=== PATIENT | female | born 1980 | race Caucasian/White ===

== ENCOUNTER 2016-09-01 17:35 | Emergency (ER) | payer MEDICAID ==
[2015-12-17 04:02] VITALS: BMI 31.7
[~2016-09-01 17:35] MED LIST: AMBIEN10 MG PO; BUTALB-APAP-CA1 EACH PO; DEPAKOTE ER500 MG PO; ESTRACE1 MG PO; FERROUS SULFAT325 MG PO; FLAGYL500 MG PO; HYSINGLA ER30 MG PO; LEVAQUIN750 MG PO; LYRICA50 MG PO; SEROQUEL50 MG PO; TRAZODONE HCL300 MG PO; TRAZODONE HCL50 MG; TRAZODONE HCL50 MG PO; VITAFOL-OB CA1 UDTAB; XANAX1 MG PO
== END 2016-09-01 18:50 | disposition left against medical advice (07) ==
LOC: D.ER 17:35
DX: Z02.9 Encounter for administrative examinations, unspecified (principal)

== ENCOUNTER 2016-11-06 16:55 | Inpatient (IN) | payer MEDICAID ==
[~2016-11-06] VITALS: Ht 157.5 cm; Wt 81.6 kg
--- NOTE | ~2016-11-06 | OP ---
PATIENT NAME: CLAU LUCERO MEDICAL RECORD: [id number] :84 LOCATION:[id number] ADMISSION DATE:11/06/16 SURGEON: BRIAN CHACON MD DATE OF OPERATION: 11/07/2016 PREOPERATIVE DIAGNOSES: 1. Foreign bodies penetrating the abdominal cavity. 2. Posttraumatic stress disorder. 3. Anxiety. POSTOPERATIVE DIAGNOSES: 1. Foreign bodies penetrating the abdominal cavity. 2. Posttraumatic stress disorder. 3. Anxiety. PROCEDURES: 1. Removal of foreign bodies from the anterior abdomen times 8. 2. Fluoroscopic interpretation. SURGEON: Brian Chacon MD. REPORT OF PROCEDURE: The patient's abdomen was prepped and draped in sterile fashion. A total of 7 skin incisions were made overlying the patient's abdominal cavity. Using fluoroscopic guidance, we were able to find 8 straight sewing needles, which I penetrated the abdominal cavity. In the left abdomen, there was one in the left upper quadrant and 2 more in the left lower quadrant. In the right abdomen, there were total of 4 needles mainly in the right lower quadrant. There was one final needle in the midline in the epigastrium. Once all of these were removed, fluoro was used to reassess the abdomen and there was no sign of any retained foreign bodies. The wounds were all reapproximated with interrupted 3-0 Vicryl and then closed with ____. COMPLICATIONS: None. CONDITION: Stable. ANESTHESIA: General endotracheal and local. BLOOD LOSS: Minimal. TRANSINT:[id number] Voice Confirmation ID: [id number] DOCUMENT ID: [id number] BRIAN CHACON MD CC: [id number] DICTATION DATE: 11/07/16 1212 VERIFIER: 11/07/16 1741 DIS IN 11/07/16 [facility] [address] [place] [address]
[2016-11-06 19:18] LABS: UDS - AMPHET NEGATIVE QUAL (NEGATIVE); UDS - BARB POSITIVE QUAL (NEGATIVE); UDS - BENZO POSITIVE QUAL (NEGATIVE); UDS - COCAINE NEGATIVE QUAL (NEGATIVE); UDS - METH NEGATIVE QUAL (NEGATIVE); UDS - OPIATE POSITIVE QUAL (NEGATIVE); UDS - PCP NEGATIVE QUAL (NEGATIVE); UDS - THC NEGATIVE QUAL (NEGATIVE)
[2016-11-06 20:05] LABS: BASOPHILS 0.3 % (0-2); EOSINOPHILS 4.1 % (0-7); HEMATOCRIT 31.4 % (36.0-48.0); IMMATURE GRANULOCYTES 0.1 % (0-5); LYMPHOCYTES 39.2 % (15-50); MCH 28.2 pg (26.0-34.0); MCHC 31.8 g/dL (31.0-37.0); MCV 88.5 fL (80.0-100.0); MEAN PLATELET VOLUME 8.5 fL (7.4-10.4); MONOCYTES 8.5 % (2-11); NEUTROPHILS 47.8 % (40-80); PLATELET COUNT 165 10x3/uL (130-400); RBC 3.55 10x6/uL (4.00-5.40); RDW 13.7 % (11.5-14.5); WBC 7.3 10x3/uL (4.8-10.8)
[2016-11-06 20:25] LABS: CALC OSMOLALITY 275 mosm/kg (275-300); CALCIUM 8.6 mg/dL (8.5-10.1); CARBON DIOXIDE 29.1 mmol/L (21.0-32.0); CHLORIDE - SERUM 106 mmol/L (98-107); CREATININE - SERUM 0.8 mg/dL (0.6-1.3); GLUCOSE 95 mg/dL (74-106); POTASSIUM - SERUM 4.5 mmol/L (3.5-5.1); SODIUM 140 mmol/L (136-145); UREA NITROGEN 5 mg/dL (7-18); VALPROIC ACID (DEPAKOTE) 16.3 ug/mL (50.0-100.0); eGFR NON AFRICAN AMERICAN 87 mL/min (90-120)
[2016-11-06 20:52] LABS: APTT 23.4 SECONDS (22.8-39.4); INR 0.97 (0.85-1.17); PROTIME 12.7 SECONDS (11.6-15.0)
[2016-11-07] VITALS: BP 125/81
--- NOTE | 2016-11-07 | NUR ---
PATIENT RECEIVED TO ROOM FROM ER VIA STRETCHER WITH HOSPITAL STAFF. AAOX4. RR EVEN AND UNLABORED. 0 S/S OF DISTRESS. STATES PAIN IS A 10/10. IV TO RIGHT CHEST PATENT WITH NO REDNESS OR SWELLING. INITIATED FLUIDS PER ORDER. MORPHINE GIVEN FOR PAIN. INITIATED TELEMETRY PER ORDER. ORIENTED PATIENT TO ROOM AND CALL LIGHT.
[2016-11-07 04:00] VITALS: BP 139/88
--- NOTE | 2016-11-07 04:00 | NUR ---
MORPHINE GIVEN FOR PAIN AND ZOFRAN GIVEN FOR NAUSEA.
[2016-11-07 04:14] VITALS: BP 125/89; BMI 33.0
[2016-11-07 08:18] VITALS: BP 116/72
--- NOTE | 2016-11-07 08:24 | NUR ---
PRN MORPHINE ADMINISTERED AT THIS TIME FOR PAIN 9/10 ABDOMINALLY. ASSESSMENT PERFORMED PER FLOWSHEET. WILL CONTINUE WITH PLAN OF CARE.
--- NOTE | 2016-11-07 10:12 | NUR ---
PRN DILAUDID AND ZOFRAN ADMINISTERED BY CODY DANG AT THIS TIME. WILL CONTINUE WITH PLAN OF CARE.
--- NOTE | 2016-11-07 10:12 | NUR ---
DILAUDID 1 MG AND ZOFRAN 8 MG SIVP PER C/O PAIN OF 9 IN ABDOMEN AND NAUSEA.
--- NOTE | 2016-11-07 10:35 | NUR ---
TAKEN TO OR AT THIS TIME. WILL MONITOR PT WHEN SHE RETURNS.
--- NOTE | 2016-11-07 11:15 | NUR ---
ANESTHESIA RESTARTS I.V. DIFFICULT I.V.
[2016-11-07] MEDS ORDERED: HYDROCODONE-APA1 TAB PO (12:05)
[2016-11-07] MEDS ORDERED: BACTRIM DS TABL1 TAB PO (12:14)
--- NOTE | 2016-11-07 12:26 | NUR ---
ANESTHESIA AWARE OF THE PTS PAIN COMPLAINTS AND O2 SAT LEVEL. SEDATION LEVEL. ANESTHESIA ORDERED DISHCARGE FORM PACU
[2016-11-07 12:40] VITALS: BP 134/74
--- NOTE | 2016-11-07 13:10 | NUR ---
BACK TO ROOM 2236 FROM PACU AT THIS TIME. AWAKE AND ALERT. VITAL SIGNS STABLE AND DRESSING TO ABDOMEN C/D/I.
[2016-11-07 13:14] VITALS: Ht 157.5 cm; Wt 81.6 kg
--- NOTE | 2016-11-07 13:30 | NUR ---
VITAL SIGNS STABLE. PT HAS EATEN AND DRANK AND TOLERATED WITHOUT NAUSEA OR VOMITING. VOIDED WITHOUT DIFFICULTY. WILL D/C HOME AT THIS TIME. IV TO RIGHT CHEST D/C BY PT WITH CATH TIP INTACT.
== END 2016-11-07 13:30 | disposition home or self-care (01) | DRG 358 ==
LOC: D.ER 16:55 → D.MS 20:59 → D.ER 20:59 → D.M2 20:59 → D.MS 21:07
PROVIDERS: Nurse Practitioner Acute Care; ADMIT Surgery
PROC: 0WC Anatomical Regions, General, Extirpation (ICD-10-PCS; principal; 2016-11-07 10:00)
DX: S31.644A Puncture wound with foreign body of abdominal wall, left lower quadrant with penetration into peritoneal cavity, initial encounter (principal); S31.64 Puncture wound with foreign body of abdominal wall with penetration into peritoneal cavity; S31.641A Puncture wound with foreign body of abdominal wall, left upper quadrant with penetration into peritoneal cavity, initial encounter; W26.8XXA Contact with other sharp object(s), not elsewhere classified, initial encounter; F43.10 Post-traumatic stress disorder, unspecified; F41.9 Anxiety disorder, unspecified; F31.9 Bipolar disorder, unspecified; I48.91 Unspecified atrial fibrillation

== ENCOUNTER 2016-11-13 13:23 | Emergency (ER) | payer MEDICAID ==
[2016-11-07 13:14] VITALS: BMI 32.9
[~2016-11-13 13:23] MED LIST changes: +BACTRIM DS TABL1 TAB PO; +HYDROCODONE-APA1 TAB PO
[2016-11-13 14:53] LABS: BASOPHILS 0.5 % (0-2); EOSINOPHILS 9.2 % (0-7); HEMATOCRIT 33.8 % (36.0-48.0); HEMOGLOBIN 10.4 g/dL (12-16); IMMATURE GRANULOCYTES 0.3 % (0-5); LYMPHOCYTES 44.7 % (15-50); MCH 27.5 pg (26.0-34.0); MCHC 30.8 g/dL (31.0-37.0); MCV 89.4 fL (80.0-100.0); MEAN PLATELET VOLUME 8.2 fL (7.4-10.4); MONOCYTES 10.1 % (2-11); NEUTROPHILS 35.2 % (40-80); RBC 3.78 10x6/uL (4.00-5.40); RDW 13.9 % (11.5-14.5)
[2016-11-13 14:56] LABS: PLATELET COUNT 268 10x3/uL (130-400)
[2016-11-13 15:09] LABS: ALBUMIN 2.7 g/dL (3.4-5.0); ALKALINE PHOSPHATASE 143 U/L (46-116); ALT (SGPT) 20 U/L (10-68); AMYLASE - SERUM 28 U/L (25-115); BILIRUBIN - TOTAL 0.19 mg/dL (0.2-1.3); CALC OSMOLALITY 275 mosm/kg (275-300); CALCIUM 8.1 mg/dL (8.5-10.1); CARBON DIOXIDE 25.7 mmol/L (21.0-32.0); CHLORIDE - SERUM 105 mmol/L (98-107); CREATININE - SERUM 0.9 mg/dL (0.6-1.3); GLUCOSE 80 mg/dL (74-106); LIPASE 65 U/L (73-393); POTASSIUM - SERUM 4.1 mmol/L (3.5-5.1); PROTEIN - SERUM 6.3 g/dL (6.4-8.2); SODIUM 140 mmol/L (136-145); UREA NITROGEN 7 mg/dL (7-18); eGFR NON AFRICAN AMERICAN 76 mL/min (90-120)
[2016-11-13 16:00] LABS: APPEARANCE CLEAR (CLEAR); BILIRUBIN NEGATIVE (NEGATIVE); COLOR YELLOW (YELLOW); GLUCOSE NEGATIVE (NEGATIVE); KETONE NEGATIVE (NEGATIVE); LEUKOCYTE ESTERASE NEGATIVE (NEGATIVE); NITRITE NEGATIVE (NEGATIVE); PROTEIN NEGATIVE (NEGATIVE); UROBILINOGEN NORMAL (NORMAL)
== END 2016-11-13 16:53 | disposition home or self-care (01) ==
LOC: D.ER 13:23
PROVIDERS: Emergency Medicine; Nurse Practitioner Family
DX: R10.9 Unspecified abdominal pain (principal); R11.2 Nausea with vomiting, unspecified; F41.9 Anxiety disorder, unspecified

== ENCOUNTER 2018-01-16 22:07 | Emergency (ER) | payer MEDICAID ==
[~2018-01-16] VITALS: Ht 157.5 cm; Wt 86.4 kg
[2018-01-16 22:16] VITALS: Ht 157.5 cm; Wt 86.4 kg
[2018-01-16 22:54] LABS: APPEARANCE CLEAR (CLEAR); BILIRUBIN NEGATIVE (NEGATIVE); COLOR YELLOW (YELLOW); GLUCOSE NEGATIVE (NEGATIVE); KETONE NEGATIVE (NEGATIVE); NITRITE NEGATIVE (NEGATIVE); PROTEIN NEGATIVE (NEGATIVE); UROBILINOGEN NORMAL (NORMAL)
[2018-01-16 23:00] LABS: BASOPHILS 0.4 % (0-2); EOSINOPHILS 9.2 % (0-7); HEMOGLOBIN 9.2 g/dL (12-16); IMMATURE GRANULOCYTES 1.1 % (0-5); LYMPHOCYTES 45.1 % (15-50); MCH 29.1 pg (26.0-34.0); MCHC 31.7 g/dL (31.0-37.0); MCV 91.8 fL (80.0-100.0); MEAN PLATELET VOLUME 8.2 fL (7.4-10.4); MONOCYTES 6.1 % (2-11); NEUTROPHILS 38.1 % (40-80); PLATELET COUNT 248 10x3/uL (130-400); RBC 3.16 10x6/uL (4.00-5.40); RDW 17.4 % (11.5-14.5); WBC 11.2 10x3/uL (4.8-10.8)
[2018-01-16 23:01] LABS: UDS - AMPHET NEGATIVE QUAL (NEGATIVE); UDS - BARB NEGATIVE QUAL (NEGATIVE); UDS - BENZO POSITIVE QUAL (NEGATIVE); UDS - COCAINE NEGATIVE QUAL (NEGATIVE); UDS - OPIATE NEGATIVE QUAL (NEGATIVE); UDS - PCP NEGATIVE QUAL (NEGATIVE); UDS - THC NEGATIVE QUAL (NEGATIVE)
[2018-01-16 23:08] LABS: ANION GAP 10.5 mmol/L (8-16); BILIRUBIN - TOTAL 0.13 mg/dL (0.2-1.3); CALCIUM 8.3 mg/dL (8.5-10.1); CARBON DIOXIDE 28.3 mmol/L (21.0-32.0); CREATININE - SERUM 1.1 mg/dL (0.6-1.3); POTASSIUM - SERUM 3.8 mmol/L (3.5-5.1); PROTEIN - SERUM 6.9 g/dL (6.4-8.2)
[2018-01-17] MEDS ORDERED: ZOFRAN ODT4 MG/UDTAB PO (02:26)
[2018-01-17 02:35] VITALS: BP 115/71
== END 2018-01-17 02:37 | disposition home or self-care (01) ==
LOC: D.ER 22:07
PROVIDERS: Family Medicine
DX: R10.9 Unspecified abdominal pain (principal); D64.9 Anemia, unspecified; G40.909 Epilepsy, unspecified, not intractable, without status epilepticus; T42.6X6A Underdosing of other antiepileptic and sedative-hypnotic drugs, initial encounter; Y92.9 Unspecified place or not applicable; Z94.7 Corneal transplant status

== ENCOUNTER 2018-03-11 12:32 | Emergency (ER) | payer MEDICAID ==
[~2018-03-11] VITALS: Ht 157.5 cm; Wt 90.5 kg
[~2018-03-11 12:32] MED LIST changes: +ZOFRAN ODT4 MG/UDTAB PO
[2018-03-11 12:44] VITALS: Ht 157.5 cm; Wt 90.5 kg
[2018-03-11 14:20] LABS: BASOPHILS 0.2 % (0-2); EOSINOPHILS 0 % (0-7); HEMOGLOBIN 9.8 g/dL (12-16); IMMATURE GRANULOCYTES 0.2 % (0-5); MCH 26.8 pg (26.0-34.0); MCHC 31.6 g/dL (31.0-37.0); MCV 84.7 fL (80.0-100.0); MEAN PLATELET VOLUME 8.7 fL (7.4-10.4); MONOCYTES 5.9 % (2-11); NEUTROPHILS 71.7 % (40-80); RBC 3.66 10x6/uL (4.00-5.40); RDW 14.2 % (11.5-14.5); WBC 14.4 10x3/uL (4.8-10.8)
[2018-03-11 14:37] LABS: PLATELET COUNT 319 10x3/uL (130-400)
[2018-03-11 14:48] LABS: APPEARANCE CLEAR (CLEAR); COLOR YELLOW (YELLOW); NITRITE NEGATIVE (NEGATIVE); PROTEIN NEGATIVE (NEGATIVE)
[2018-03-11 14:49] LABS: BILIRUBIN NEGATIVE (NEGATIVE); GLUCOSE 1000 mg/dL (NEGATIVE); KETONE NEGATIVE (NEGATIVE); UROBILINOGEN NORMAL (NORMAL)
[2018-03-11 14:50] LABS: BACTERIA FEW /hpf (NONE SEEN); RED CELLS - URINE 0-5 /hpf (0-5); WHITE CELLS - URINE 0-5 /hpf (0-5)
[2018-03-11 14:51] LABS: ALBUMIN 3.2 g/dL (3.4-5.0); ALKALINE PHOSPHATASE 114 U/L (46-116); ALT (SGPT) 29 U/L (10-68); CALC OSMOLALITY 284 mosm/kg (275-300); CALCIUM 8.9 mg/dL (8.5-10.1); CARBON DIOXIDE 26.4 mmol/L (21.0-32.0); CHLORIDE - SERUM 106 mmol/L (98-107); CREATININE - SERUM 0.9 mg/dL (0.6-1.3); GLUCOSE 72 mg/dL (74-106); POTASSIUM - SERUM 3.7 mmol/L (3.5-5.1); PROTEIN - SERUM 7.9 g/dL (6.4-8.2); SODIUM 144 mmol/L (136-145); eGFR NON AFRICAN AMERICAN 75 mL/min (90-120)
[2018-03-11 14:56] LABS: UREA NITROGEN 11 mg/dL (7-18)
[2018-03-11] MEDS ORDERED: MACROBID100 MG PO (18:01)
[2018-03-11] MEDS ORDERED: ZOFRAN ODT4 MG/UDTAB PO (18:01)
[2018-03-11 22:18] VITALS: BP 102/84
== END 2018-03-11 19:21 | disposition home or self-care (01) ==
LOC: D.ER 12:32
PROVIDERS: Emergency Medicine
DX: N39.0 Urinary tract infection, site not specified (principal); K29.70 Gastritis, unspecified, without bleeding; G40.909 Epilepsy, unspecified, not intractable, without status epilepticus; Z94.7 Corneal transplant status; I48.91 Unspecified atrial fibrillation; Z86.59 Personal history of other mental and behavioral disorders; Z98.84 Bariatric surgery status

== ENCOUNTER 2018-03-31 16:56 | Emergency (ER) | payer MEDICAID ==
[~2018-03-31] VITALS: Ht 157.5 cm; Wt 89.1 kg
[~2018-03-31 16:56] MED LIST changes: +MACROBID100 MG PO
[2018-03-31 17:14] VITALS: Ht 157.5 cm; Wt 89.1 kg
[2018-03-31] MEDS ORDERED: SEROQUEL50 MG PO (17:16)
[2018-03-31] MEDS ORDERED: AMITRIPTYLINE100 MG PO (17:16)
[2018-03-31 18:04] LABS: APPEARANCE CLEAR (CLEAR); BILIRUBIN NEGATIVE (NEGATIVE); COLOR STRAW (YELLOW); GLUCOSE NEGATIVE (NEGATIVE); KETONE NEGATIVE (NEGATIVE); NITRITE NEGATIVE (NEGATIVE); PROTEIN NEGATIVE (NEGATIVE); UROBILINOGEN NORMAL (NORMAL)
[2018-03-31 18:19] LABS: BASOPHILS 0.5 % (0-2); HEMATOCRIT 28.2 % (36.0-48.0); HEMOGLOBIN 8.8 g/dL (12-16); IMMATURE GRANULOCYTES 0.3 % (0-5); LYMPHOCYTES 40.4 % (15-50); MCH 24.9 pg (26.0-34.0); MCHC 31.2 g/dL (31.0-37.0); MCV 79.7 fL (80.0-100.0); MEAN PLATELET VOLUME 7.9 fL (7.4-10.4); MONOCYTES 9.4 % (2-11); NEUTROPHILS 46.4 % (40-80); PLATELET COUNT 323 10x3/uL (130-400); RBC 3.54 10x6/uL (4.00-5.40); RDW 14.8 % (11.5-14.5); WBC 6.6 10x3/uL (4.8-10.8)
[2018-03-31 18:47] LABS: ALBUMIN 2.9 g/dL (3.4-5.0); ALKALINE PHOSPHATASE 124 U/L (46-116); ALT (SGPT) 18 U/L (10-68); BILIRUBIN - TOTAL 0.14 mg/dL (0.2-1.3); CALC OSMOLALITY 279 mosm/kg (275-300); CALCIUM 8.7 mg/dL (8.5-10.1); CARBON DIOXIDE 26.8 mmol/L (21.0-32.0); CHLORIDE - SERUM 106 mmol/L (98-107); CREATININE - SERUM 0.9 mg/dL (0.6-1.3); POTASSIUM - SERUM 3.8 mmol/L (3.5-5.1); PROTEIN - SERUM 7.4 g/dL (6.4-8.2); SODIUM 141 mmol/L (136-145); UREA NITROGEN 6 mg/dL (7-18); eGFR NON AFRICAN AMERICAN 75 mL/min (90-120)
[2018-03-31 18:51] LABS: GLUCOSE 112 mg/dL (74-106)
[2018-03-31] MEDS ORDERED: REGLAN10 MG PO (19:52)
[2018-03-31] MEDS ORDERED: BENTYL10 MG PO (19:52)
[2018-03-31 20:32] VITALS: BP 147/100
== END 2018-03-31 20:32 | disposition home or self-care (01) ==
LOC: D.ER 16:56
PROVIDERS: Emergency Medicine
DX: G89.18 Other acute postprocedural pain (principal); Z98.84 Bariatric surgery status; G40.909 Epilepsy, unspecified, not intractable, without status epilepticus

== ENCOUNTER 2018-06-02 14:09 | Emergency (ER) | payer MEDICAID ==
[~2018-06-02 14:09] MED LIST changes: +AMITRIPTYLINE100 MG PO; +BENTYL10 MG PO; +REGLAN10 MG PO
[2018-06-02 14:12] VITALS: Ht 157.5 cm
[2018-06-02 15:25] LABS: BASOPHILS 0.3 % (0-2); HEMATOCRIT 40.2 % (36.0-48.0); HEMOGLOBIN 12.5 g/dL (12-16); IMMATURE GRANULOCYTES 0.5 % (0-5); LYMPHOCYTES 24.7 % (15-50); MCH 23.5 pg (26.0-34.0); MCHC 31.1 g/dL (31.0-37.0); MCV 75.6 fL (80.0-100.0); MEAN PLATELET VOLUME 8.8 fL (7.4-10.4); MONOCYTES 5.1 % (2-11); NEUTROPHILS 68.4 % (40-80); RBC 5.32 10x6/uL (4.00-5.40); RDW 19.4 % (11.5-14.5)
[2018-06-02 15:26] LABS: HCG URINE NEGATIVE (NEGATIVE)
[2018-06-02 15:32] LABS: PLATELET COUNT 428 10x3/uL (130-400)
[2018-06-02 15:35] LABS: UDS - AMPHET NEGATIVE QUAL (NEGATIVE); UDS - BARB NEGATIVE QUAL (NEGATIVE); UDS - BENZO POSITIVE QUAL (NEGATIVE); UDS - COCAINE NEGATIVE QUAL (NEGATIVE); UDS - OPIATE NEGATIVE QUAL (NEGATIVE); UDS - PCP NEGATIVE QUAL (NEGATIVE); UDS - THC NEGATIVE QUAL (NEGATIVE)
[2018-06-02 15:40] LABS: APPEARANCE CLEAR (CLEAR); COLOR YELLOW (YELLOW)
[2018-06-02 15:41] LABS: BILIRUBIN NEGATIVE (NEGATIVE); EPITHELIAL CELLS OCC /hpf (0-5); GLUCOSE NEGATIVE (NEGATIVE); KETONE NEGATIVE (NEGATIVE); NITRITE NEGATIVE (NEGATIVE); PROTEIN NEGATIVE (NEGATIVE); RED CELLS - URINE NONE SEEN /hpf (0-5); UROBILINOGEN NORMAL (NORMAL); WHITE CELLS - URINE OCC /hpf (0-5)
[2018-06-02 15:46] LABS: ALBUMIN 3.7 g/dL (3.4-5.0); BILIRUBIN - TOTAL 0.2 mg/dL (0.2-1.3); CALCIUM 9.5 mg/dL (8.5-10.1); CARBON DIOXIDE 26.7 mmol/L (21.0-32.0); CREATININE - SERUM 1.2 mg/dL (0.6-1.3); POTASSIUM - SERUM 3.7 mmol/L (3.5-5.1); PROTEIN - SERUM 8.6 g/dL (6.4-8.2)
[2018-06-02 15:51] LABS: VALPROIC ACID (DEPAKOTE) 0.3 ug/mL (50.0-100.0)
[2018-06-02 18:27] VITALS: BP 114/088
== END 2018-06-02 18:29 | disposition home or self-care (01) ==
LOC: D.ER 14:09
PROVIDERS: Family Medicine
DX: G40.909 Epilepsy, unspecified, not intractable, without status epilepticus (principal); S39.012A Strain of muscle, fascia and tendon of lower back, initial encounter; X58.XXXA Exposure to other specified factors, initial encounter; Y93.89 Activity, other specified; Y92.019 Unspecified place in single-family (private) house as the place of occurrence of the external cause

== ENCOUNTER 2018-06-04 13:52 | Emergency (ER) | payer MEDICAID ==
[~2018-06-04] VITALS: Ht 157.5 cm; Wt 95.5 kg
[2018-06-04 13:59] VITALS: Ht 157.5 cm; Wt 95.5 kg
[2018-06-04] MEDS ORDERED: CYCLOBENZAPRINE10 MG PO (16:33)
[2018-06-04] MEDS ORDERED: EC-NAPROSYN500 MG PO (16:33)
[2018-06-04 17:36] VITALS: BP 142/98
== END 2018-06-04 16:55 | disposition home or self-care (01) ==
LOC: D.ER 13:52
DX: M79.672 Pain in left foot (principal); M79.18 Myalgia, other site; W11.XXXA Fall on and from ladder, initial encounter; Y93.89 Activity, other specified; Y92.89 Other specified places as the place of occurrence of the external cause; G40.909 Epilepsy, unspecified, not intractable, without status epilepticus

== ENCOUNTER 2018-07-15 19:41 | Emergency (ER) | payer MEDICAID ==
[~2018-07-15] VITALS: Ht 157.5 cm; Wt 95.5 kg
[~2018-07-15 19:41] MED LIST changes: +CYCLOBENZAPRINE10 MG PO; +EC-NAPROSYN500 MG PO
[2018-07-15 20:02] VITALS: BP 145/107; Ht 157.5 cm; Wt 95.5 kg
[2018-07-15] MEDS ORDERED: ATARAX 25 MG TA25 MG PO (20:05)
[2018-07-15] MEDS ORDERED: XANAX2 MG PO (20:06)
[2018-07-15 21:24] LABS: APPEARANCE HAZY (CLEAR); BILIRUBIN NEGATIVE (NEGATIVE); COLOR YELLOW (YELLOW); EPITHELIAL CELLS 0-5 /hpf (0-5); GLUCOSE NEGATIVE (NEGATIVE); KETONE NEGATIVE (NEGATIVE); NITRITE NEGATIVE (NEGATIVE); PROTEIN 1+ mg/dL (NEGATIVE); RED CELLS - URINE 0-5 /hpf (0-5); UROBILINOGEN NORMAL (NORMAL); WHITE CELLS - URINE NSEEN /hpf (0-5)
[2018-07-15 21:28] LABS: UDS - AMPHET NEGATIVE QUAL (NEGATIVE); UDS - BARB NEGATIVE QUAL (NEGATIVE); UDS - BENZO POSITIVE QUAL (NEGATIVE); UDS - COCAINE NEGATIVE QUAL (NEGATIVE); UDS - OPIATE NEGATIVE QUAL (NEGATIVE); UDS - PCP NEGATIVE QUAL (NEGATIVE); UDS - THC NEGATIVE QUAL (NEGATIVE)
[2018-07-15 21:43] LABS: BASOPHILS 0.3 % (0-2); EOSINOPHILS 7.9 % (0-7); HEMATOCRIT 37.4 % (36.0-48.0); HEMOGLOBIN 11.7 g/dL (12-16); IMMATURE GRANULOCYTES 3.9 % (0-5); LYMPHOCYTES 30.2 % (15-50); MCH 24.7 pg (26.0-34.0); MCHC 31.3 g/dL (31.0-37.0); MCV 79.1 fL (80.0-100.0); MEAN PLATELET VOLUME 8.1 fL (7.4-10.4); NEUTROPHILS 50.7 % (40-80); RBC 4.73 10x6/uL (4.00-5.40); WBC 11.7 10x3/uL (4.8-10.8)
[2018-07-15 21:44] LABS: PLATELET COUNT 203 10x3/uL (130-400)
[2018-07-15 21:57] LABS: ANION GAP 13.2 mmol/L (8-16); BILIRUBIN - TOTAL 0.19 mg/dL (0.2-1.3); CALCIUM 8.5 mg/dL (8.5-10.1); CARBON DIOXIDE 27.1 mmol/L (21.0-32.0); CREATININE - SERUM 1.3 mg/dL (0.6-1.3); POTASSIUM - SERUM 3.3 mmol/L (3.5-5.1); PROTEIN - SERUM 8.2 g/dL (6.4-8.2)
== END 2018-07-15 22:14 | disposition home or self-care (01) ==
LOC: D.ER 19:41
PROVIDERS: Emergency Medicine
DX: Z76.5 Malingerer [conscious simulation] (principal); R51 Headache; G47.00 Insomnia, unspecified; G40.909 Epilepsy, unspecified, not intractable, without status epilepticus

== ENCOUNTER 2018-08-12 14:45 | Emergency (ER) | payer MEDICAID ==
[~2018-08-12] VITALS: Ht 157.5 cm; Wt 97.3 kg
[~2018-08-12 14:45] MED LIST changes: +ATARAX 25 MG TA25 MG PO; +XANAX2 MG PO
[2018-08-12 14:57] VITALS: Ht 157.5 cm; Wt 97.3 kg
[2018-08-12] MEDS ORDERED: CYCLOBENZAPRINE10 MG PO (16:28)
[2018-08-12] MEDS ORDERED: NAPROSYN500 MG PO (16:30)
[2018-08-12 17:07] LABS: PROTIME 12.7 SECONDS (11.6-15.0)
[2018-08-12 17:44] LABS: ALBUMIN 2.8 g/dL (3.4-5.0); ALKALINE PHOSPHATASE 96 U/L (46-116); ALT (SGPT) 16 U/L (10-68); CALC OSMOLALITY 288 mosm/kg (275-300); CALCIUM 8.3 mg/dL (8.5-10.1); CARBON DIOXIDE 27.1 mmol/L (21.0-32.0); CHLORIDE - SERUM 107 mmol/L (98-107); CREATININE - SERUM 1.2 mg/dL (0.6-1.3); GLUCOSE 79 mg/dL (74-106); POTASSIUM - SERUM 4.6 mmol/L (3.5-5.1); PROTEIN - SERUM 6.8 g/dL (6.4-8.2); SODIUM 145 mmol/L (136-145); UREA NITROGEN 14 mg/dL (7-18); eGFR NON AFRICAN AMERICAN 54 mL/min (90-120)
[2018-08-12 17:50] VITALS: BP 135/93
[2018-08-12 17:53] LABS: CKMB 5.4 U/L (0.0-3.6); CREATINE KINASE 557 UL (21-215)
[2018-08-12 18:00] LABS: BASOPHILS 0.4 % (0-2); EOSINOPHILS 7.7 % (0-7); HEMATOCRIT 33.1 % (36.0-48.0); HEMOGLOBIN 10.3 g/dL (12-16); IMMATURE GRANULOCYTES 0.8 % (0-5); MCH 27.1 pg (26.0-34.0); MCHC 31.1 g/dL (31.0-37.0); MCV 87.1 fL (80.0-100.0); MEAN PLATELET VOLUME 8.4 fL (7.4-10.4); MONOCYTES 12.3 % (2-11); NEUTROPHILS 48.8 % (40-80); PLATELET COUNT 154 10x3/uL (130-400); RDW 22.2 % (11.5-14.5); WBC 8.3 10x3/uL (4.8-10.8)
[2018-08-12 18:02] LABS: BILIRUBIN - TOTAL 0.09 mg/dL (0.2-1.3)
== END 2018-08-12 17:50 | disposition home or self-care (01) ==
LOC: D.ER 14:45
PROVIDERS: Family Medicine
DX: S39.012A Strain of muscle, fascia and tendon of lower back, initial encounter (principal); V80.010A Animal-rider injured by fall from or being thrown from horse in noncollision accident, initial encounter; Y93.52 Activity, horseback riding; Y92.89 Other specified places as the place of occurrence of the external cause; S40.012A Contusion of left shoulder, initial encounter

== ENCOUNTER 2018-11-02 15:37 | Emergency (ER) | payer MEDICAID ==
[~2018-11-02] VITALS: Ht 157.5 cm; Wt 113.6 kg
[~2018-11-02 15:37] MED LIST changes: +NAPROSYN500 MG PO
[2018-11-02 15:44] VITALS: Ht 157.5 cm; Wt 113.6 kg
[2018-11-02 16:26] LABS: BASOPHILS 0.2 % (0-2); EOSINOPHILS 5.7 % (0-7); HEMATOCRIT 31.9 % (36.0-48.0); HEMOGLOBIN 10.4 g/dL (12-16); IMMATURE GRANULOCYTES 1.2 % (0-5); LYMPHOCYTES 33.8 % (15-50); MCHC 32.6 g/dL (31.0-37.0); MCV 94.9 fL (80.0-100.0); MEAN PLATELET VOLUME 8.5 fL (7.4-10.4); MONOCYTES 15.9 % (2-11); NEUTROPHILS 43.2 % (40-80); PLATELET COUNT 142 10x3/uL (130-400); RBC 3.36 10x6/uL (4.00-5.40); RDW 13.9 % (11.5-14.5); WBC 8.2 10x3/uL (4.8-10.8)
[2018-11-02 16:26] LABS: APPEARANCE CLEAR (CLEAR); COLOR YELLOW (YELLOW)
[2018-11-02 16:27] LABS: BILIRUBIN NEGATIVE (NEGATIVE); GLUCOSE NEGATIVE (NEGATIVE); KETONE NEGATIVE (NEGATIVE); NITRITE NEGATIVE (NEGATIVE); PROTEIN NEGATIVE (NEGATIVE); UROBILINOGEN NORMAL (NORMAL)
[2018-11-02 16:43] LABS: ALBUMIN 2.6 g/dL (3.4-5.0); ALKALINE PHOSPHATASE 104 U/L (46-116); ALT (SGPT) 22 U/L (10-68); BILIRUBIN - TOTAL 0.19 mg/dL (0.2-1.3); CALC OSMOLALITY 279 mosm/kg (275-300); CALCIUM 8.6 mg/dL (8.5-10.1); CARBON DIOXIDE 30.1 mmol/L (21.0-32.0); CHLORIDE - SERUM 104 mmol/L (98-107); CREATININE - SERUM 1.3 mg/dL (0.6-1.3); GLUCOSE 96 mg/dL (74-106); POTASSIUM - SERUM 4.3 mmol/L (3.5-5.1); PROTEIN - SERUM 6.8 g/dL (6.4-8.2); SODIUM 139 mmol/L (136-145); UREA NITROGEN 18 mg/dL (7-18); eGFR NON AFRICAN AMERICAN 49 mL/min (90-120)
[2018-11-02 16:46] LABS: AMYLASE - SERUM 32 U/L (25-115); LIPASE 84 U/L (73-393)
[2018-11-02 16:47] LABS: TROPONIN-I < 0.017 ng/mL (0.000-0.060)
[2018-11-02 16:48] LABS: UDS - AMPHET NEGATIVE QUAL (NEGATIVE); UDS - BARB NEGATIVE QUAL (NEGATIVE); UDS - BENZO POSITIVE QUAL (NEGATIVE); UDS - COCAINE NEGATIVE QUAL (NEGATIVE); UDS - OPIATE NEGATIVE QUAL (NEGATIVE); UDS - PCP NEGATIVE QUAL (NEGATIVE); UDS - THC NEGATIVE QUAL (NEGATIVE)
[2018-11-02] MEDS ORDERED: FUROSEMIDE20 MG PO ×2 (18:11→18:16)
[2018-11-02 18:16] VITALS: BP 149/73
[2018-11-02] MEDS ORDERED: NAPROSYN500 MG PO (18:16)
== END 2018-11-02 18:40 | disposition home or self-care (01) ==
LOC: D.ER 15:37
PROVIDERS: Emergency Medicine
DX: R60.9 Edema, unspecified (principal)

== ENCOUNTER 2018-12-26 23:01 | Emergency (ER) | payer MEDICAID ==
[~2018-12-26] VITALS: Ht 157.5 cm; Wt 110.0 kg
[~2018-12-26 23:01] MED LIST changes: +FUROSEMIDE20 MG PO
[2018-12-26 23:19] VITALS: Ht 157.5 cm; Wt 110.0 kg
[2018-12-26] MEDS ORDERED: DEPAKOTE125 MG PO (23:22)
[2018-12-26] MEDS ORDERED: AMITRIPTYLINE H50 MG PO (23:22)
[2018-12-26] MEDS ORDERED: ZANAFLEX4 MG PO (23:23)
[2018-12-26 23:59] LABS: APPEARANCE CLEAR (CLEAR); BILIRUBIN NEGATIVE (NEGATIVE); COLOR YELLOW (YELLOW); GLUCOSE NEGATIVE (NEGATIVE); KETONE NEGATIVE (NEGATIVE); NITRITE NEGATIVE (NEGATIVE); PROTEIN NEGATIVE (NEGATIVE); SPECIFIC GRAVITY 1.015 (1.005-1.020); UROBILINOGEN NORMAL (NORMAL)
[2018-12-27] LABS: BACTERIA FEW /hpf (NONE SEEN); EPITHELIAL CELLS 0-5 /hpf (0-5); WHITE CELLS - URINE 0-5 /hpf (0-5)
[2018-12-27 00:42] LABS: BASOPHILS 0.2 % (0-2); EOSINOPHILS 1.9 % (0-7); HEMATOCRIT 32.8 % (36.0-48.0); HEMOGLOBIN 11.1 g/dL (12-16); IMMATURE GRANULOCYTES 0.6 % (0-5); LYMPHOCYTES 26.7 % (15-50); MCH 31.2 pg (26.0-34.0); MCHC 33.8 g/dL (31.0-37.0); MCV 92.1 fL (80.0-100.0); MEAN PLATELET VOLUME 9.3 fL (7.4-10.4); MONOCYTES 11.5 % (2-11); NEUTROPHILS 59.1 % (40-80); PLATELET COUNT 128 10x3/uL (130-400); RBC 3.56 10x6/uL (4.00-5.40); RDW 13.1 % (11.5-14.5); WBC 10.2 10x3/uL (4.8-10.8)
[2018-12-27 00:56] LABS: ALBUMIN 2.8 g/dL (3.4-5.0); ALKALINE PHOSPHATASE 121 U/L (46-116); ALT (SGPT) 57 U/L (10-68); BILIRUBIN - TOTAL 0.24 mg/dL (0.2-1.3); CALC OSMOLALITY 267 mosm/kg (275-300); CALCIUM 8.7 mg/dL (8.5-10.1); CARBON DIOXIDE 30.8 mmol/L (21.0-32.0); CHLORIDE - SERUM 100 mmol/L (98-107); GLUCOSE 89 mg/dL (74-106); POTASSIUM - SERUM 3.6 mmol/L (3.5-5.1); PROTEIN - SERUM 7.3 g/dL (6.4-8.2); SODIUM 135 mmol/L (136-145); UREA NITROGEN 9 mg/dL (7-18); eGFR NON AFRICAN AMERICAN 66 mL/min (90-120)
[2018-12-27 00:58] LABS: AMYLASE - SERUM 31 U/L (25-115); LIPASE 59 U/L (73-393); VALPROIC ACID (DEPAKOTE) 55.8 ug/mL (50.0-100.0)
[2018-12-27 01:00] LABS: TROPONIN-I < 0.017 ng/mL (0.000-0.060)
[2018-12-27] MEDS ORDERED: LEVAQUIN750 MG PO (03:39)
[2018-12-27] MEDS ORDERED: HYDROCODON-ACE1 EA10 PO (03:39)
[2018-12-27] MEDS ORDERED: PHENERGAN25 M1 PO (03:39)
[2018-12-27 05:28] VITALS: BP 132/77
== END 2018-12-27 05:30 | disposition home or self-care (01) ==
LOC: D.ER 23:01
PROVIDERS: Emergency Medicine
DX: J18.9 Pneumonia, unspecified organism (principal)

== ENCOUNTER 2019-02-05 17:33 | Emergency (ER) | payer MEDICAID ==
[~2019-02-05] VITALS: Ht 157.5 cm; Wt 90.9 kg
[~2019-02-05 17:33] MED LIST changes: +AMITRIPTYLINE H50 MG PO; +DEPAKOTE125 MG PO; +HYDROCODON-ACE1 EA10 PO; +PHENERGAN25 M1 PO; +ZANAFLEX4 MG PO
[2019-02-05 17:46] VITALS: Ht 157.5 cm; Wt 90.9 kg
[2019-02-05 18:09] LABS: BASOPHILS 0.3 % (0-2); EOSINOPHILS 5.6 % (0-7); HEMATOCRIT 35.4 % (36.0-48.0); HEMOGLOBIN 11.8 g/dL (12-16); IMMATURE GRANULOCYTES 1.8 % (0-5); LYMPHOCYTES 35.7 % (15-50); MCH 31.2 pg (26.0-34.0); MCHC 33.3 g/dL (31.0-37.0); MCV 93.7 fL (80.0-100.0); MEAN PLATELET VOLUME 9.3 fL (7.4-10.4); MONOCYTES 7.8 % (2-11); NEUTROPHILS 48.8 % (40-80); RBC 3.78 10x6/uL (4.00-5.40); RDW 13.9 % (11.5-14.5); WBC 10.1 10x3/uL (4.8-10.8)
[2019-02-05 18:10] LABS: PLATELET COUNT 155 10x3/uL (130-400)
[2019-02-05 18:24] LABS: ANION GAP 10.6 mmol/L (8-16); BILIRUBIN - TOTAL 0.19 mg/dL (0.2-1.3); CARBON DIOXIDE 31.4 mmol/L (21.0-32.0); CREATININE - SERUM 1.3 mg/dL (0.6-1.3); PROTEIN - SERUM 7.2 g/dL (6.4-8.2)
[2019-02-05 18:28] LABS: APTT 44.3 SECONDS (22.8-39.4); INR 0.91 (0.85-1.17); PROTIME 11.8 SECONDS (11.6-15.0)
[2019-02-05 19:55] VITALS: BP 132/95
== END 2019-02-05 19:57 | disposition home or self-care (01) ==
LOC: D.ER 17:33
PROVIDERS: Family Medicine
DX: T63.001A Toxic effect of unspecified snake venom, accidental (unintentional), initial encounter (principal); Y92.89 Other specified places as the place of occurrence of the external cause

== ENCOUNTER 2019-02-18 16:48 | Emergency (ER) | payer MEDICAID ==
[~2019-02-18] VITALS: Ht 157.5 cm; Wt 116.0 kg
[2019-02-18 17:14] VITALS: Ht 157.5 cm; Wt 116.0 kg
[2019-02-18 17:32] LABS: APPEARANCE CLEAR (CLEAR); BILIRUBIN NEGATIVE (NEGATIVE); COLOR YELLOW (YELLOW); GLUCOSE NEGATIVE (NEGATIVE); KETONE SMALL mg/dL (NEGATIVE); NITRITE NEGATIVE (NEGATIVE); PROTEIN NEGATIVE (NEGATIVE); SPECIFIC GRAVITY 1.015 (1.005-1.020); UROBILINOGEN NORMAL (NORMAL)
[2019-02-18 17:34] LABS: BACTERIA FEW /hpf (NONE SEEN); RED CELLS - URINE 0-5 /hpf (0-5); WHITE CELLS - URINE 0-5 /hpf (0-5)
[2019-02-18 17:40] LABS: BASOPHILS 0.1 % (0-2); EOSINOPHILS 3.3 % (0-7); HEMATOCRIT 33.4 % (36.0-48.0); HEMOGLOBIN 11.4 g/dL (12-16); IMMATURE GRANULOCYTES 0.8 % (0-5); LYMPHOCYTES 31.2 % (15-50); MCH 31.2 pg (26.0-34.0); MCHC 34.1 g/dL (31.0-37.0); MCV 91.5 fL (80.0-100.0); MEAN PLATELET VOLUME 8.8 fL (7.4-10.4); MONOCYTES 8.7 % (2-11); NEUTROPHILS 55.9 % (40-80); PLATELET COUNT 158 10x3/uL (130-400); RBC 3.65 10x6/uL (4.00-5.40); RDW 13.8 % (11.5-14.5); WBC 9.1 10x3/uL (4.8-10.8)
[2019-02-18 17:54] LABS: ALBUMIN 3.1 g/dL (3.4-5.0); BILIRUBIN - TOTAL 0.29 mg/dL (0.2-1.3); CARBON DIOXIDE 26.6 mmol/L (21.0-32.0); CREATININE - SERUM 1.1 mg/dL (0.6-1.3); POTASSIUM - SERUM 3.6 mmol/L (3.5-5.1); PROTEIN - SERUM 7.5 g/dL (6.4-8.2)
[2019-02-18 18:18] LABS: HCG SERUM NEGATIVE (NEGATIVE)
[2019-02-18] MEDS ORDERED: LOMOTIL 2.5-0.1 EAC1 PO (21:38)
[2019-02-18] MEDS ORDERED: TYLENOL #4 W/CO1 TAB PO (21:38)
[2019-02-18] MEDS ORDERED: ZOFRAN ODT4 MG/UDTAB PO (21:38)
[2019-02-18 23:33] VITALS: BP 122/74
== END 2019-02-19 | disposition home or self-care (01) ==
LOC: D.ER 16:48
PROVIDERS: Emergency Medicine
DX: R10.9 Unspecified abdominal pain (principal); R11.2 Nausea with vomiting, unspecified; R16.0 Hepatomegaly, not elsewhere classified